=== PATIENT | male | born 1945 | race American Indian/Alaskan Native ===

== ENCOUNTER 2018-01-05 16:52 | Emergency (ER) | payer BC, MEDICARE ==
[2018-01-05 17:12] VITALS: BP 146/81
--- NOTE | 2018-01-05 20:09 | Emergency Department Report ---
HPI - General Chief Complaint: Allergic Reaction Time Seen by Provider: 01/05/18 19:55 ED Past Medical Hx - Past Medical History Previous Medical History?: No Hx Arthritis: Yes - Surgical History Past Surgical History?: Yes Additional Surgical History: hip replacement 2014 - Social History Smoking Status: Never Smoker Substance Use Type: None - Medications Home Medications: Home Medications Medication Instructions Recorded Confirmed Last Taken Type HYDROcodone/APAP 5-325 [[place] 1 each PO Q6HR PRN #30 tablet 10/23/14 Unknown Rx 5-325 mg TAB] Naproxen [Naprosyn TAB] 500 mg PO BID #60 tablet 10/23/14 Unknown Rx traMADol [Ultram 50 MG tab] 50 mg PO TID #30 tablet 10/23/14 Unknown Rx ED Review of Systems ROS: Stated complaint: ALLERGIC REACTION Other details as noted in HPI Physical Exam - Physical Exam Vital Signs: Vital Signs 01/05/18 17:03 Temperature 99.3 F Pulse Rate 83 Respiratory 20 Rate Blood Pressure 146/81 O2 Sat by Pulse 98 Oximetry ED Course Vital Signs 01/05/18 17:03 Temperature 99.3 F Pulse Rate 83 Respiratory 20 Rate Blood Pressure 146/81 O2 Sat by Pulse 98 Oximetry Critical care attestation.: If time is entered above; I have spent that time in minutes in the direct care of this critically ill patient, excluding procedure time. ED Disposition Condition: Stable Referrals: PRIMARY CARE, [Primary Care Provider] - 3-5 Days
[2018-01-05] MEDS ORDERED: DELTASONE PO ONE (20:10)
--- NOTE | 2018-01-05 20:14 | Emergency Department Report ---
ED General Adult HPI - General Chief complaint: Allergic Reaction Stated complaint: ALLERGIC REACTION Time Seen by Provider: 01/05/18 19:55 Source: patient Mode of arrival: Ambulatory Limitations: No Limitations - History of Present Illness Initial comments: 72-year-old male reports he had added dye to his meier Friday and then woke up Friday with swelling and itchiness to his face. Patient reports that he take Benadryl but still having itching. Patient reports that he was using hydrocortisone itching continued. Patient reports that he use Benadryl cream today and he said the itching was better but the swelling is still noticeable. Patient denies any allergies to any medications. He reports he takes tramadol and naproxen and [place] for chronic pain. -: days(s) (2) Location: head, face Radiation: non-radiation Quality: other (itching) Consistency: constant Improves with: medication (Benadryl cream) Associated Symptoms: denies other symptoms - Related Data Previous Rx's Medication Instructions Recorded Last Taken Type HYDROcodone/APAP 5-325 [[place] 1 each PO Q6HR PRN #30 tablet 10/23/14 Unknown Rx 5-325 mg TAB] Naproxen [Naprosyn TAB] 500 mg PO BID #60 tablet 10/23/14 Unknown Rx traMADol [Ultram 50 MG tab] 50 mg PO TID #30 tablet 10/23/14 Unknown Rx Prednisone [predniSONE 5 mg (6-Day 5 mg PO .TAPER #1 tab.ds.pk 01/05/18 Unknown Rx Pack, 21 Tabs)] Triamcinolone 0.025% [Kenalog 1 applic TP TID #1 tube 01/05/18 Unknown Rx 0.025% CREAM] Allergies Allergy/AdvReac Type Severity Reaction Status Date / Time No Known Allergies Allergy Unverified 10/20/14 19:11 ED Review of Systems ROS: Stated complaint: ALLERGIC REACTION Other details as noted in HPI Skin: rash (on head in [place] area) ED Past Medical Hx - Past Medical History Previous Medical History?: No Hx Arthritis: Yes - Surgical History Past Surgical History?: Yes Additional Surgical History: hip replacement 2014 - Social History Smoking Status: Never Smoker Substance Use Type: None - Medications Home Medications: Home Medications Medication Instructions Recorded Confirmed Last Taken Type HYDROcodone/APAP 5-325 [[place] 1 each PO Q6HR PRN #30 tablet 10/23/14 Unknown Rx 5-325 mg TAB] Naproxen [Naprosyn TAB] 500 mg PO BID #60 tablet 10/23/14 Unknown Rx traMADol [Ultram 50 MG tab] 50 mg PO TID #30 tablet 10/23/14 Unknown Rx Prednisone [predniSONE 5 mg (6-Day 5 mg PO .TAPER #1 tab.ds.pk 01/05/18 Unknown Rx Pack, 21 Tabs)] Triamcinolone 0.025% [Kenalog 1 applic TP TID #1 tube 01/05/18 Unknown Rx 0.025% CREAM] ED Physical Exam - General Limitations: No Limitations General appearance: alert, in no apparent distress - Head Head exam: Present: atraumatic, normocephalic, other (fine papular lesions non- erythematous non-edematous on the top of the head). Absent: normal inspection - ENT ENT exam: Present: mucous membranes moist - Respiratory Respiratory exam: Present: normal lung sounds bilaterally. Absent: respiratory distress - Cardiovascular Cardiovascular Exam: Present: regular rate, normal rhythm. Absent: systolic murmur, diastolic murmur, rubs, gallop - Neurological Exam Neurological exam: Present: alert, oriented X3 - Psychiatric Psychiatric exam: Present: normal affect, normal mood - Skin Skin exam: Present: warm - Expanded Skin Exam Expanded Type of lesion: Present: rash Distribution of rash: head, face Description of rash: Present: swelling (meier area). Absent: tenderness, erythematous, blisters ED Course Vital Signs 01/05/18 17:03 Temperature 99.3 F Pulse Rate 83 Respiratory 20 Rate Blood Pressure 146/81 O2 Sat by Pulse 98 Oximetry ED Medical Decision Making - Medical Decision Making Patient has been evaluated by this provider fast track. Prednisone 40 mg ordered Discussed patient I will place him on prednisone pack and triamcinolone cream 0.025 % Discussed with patient to follow up with his primary care provider. Critical care attestation.: If time is entered above; I have spent that time in minutes in the direct care of this critically ill patient, excluding procedure time. ED Disposition Clinical Impression: Allergic reaction Qualifiers: Encounter type: initial encounter Qualified Code(s): T78.40XA - Allergy, unspecified, initial encounter Disposition: TO HOME OR SELFCARE Is pt being admited?: No Does the pt Need Aspirin: No Condition: Stable Instructions: Urticaria (ED), Allergies (ED) Additional Instructions: Use medication as prescribed. If her symptoms persist or gets worse please follow-up with her primary care provider. Prescriptions: Prednisone [predniSONE 5 mg (6-Day Pack, 21 Tabs)] 5 mg PO .TAPER #1 tab.ds.pk Triamcinolone 0.025% [Kenalog 0.025% CREAM] 1 applic TP TID #1 tube Referrals: PRIMARY CARE, [Primary Care Provider] - 3-5 Days [facility] [Other] - 3-5 Days Forms: Work/School Release Form(ED), Accompanied Note
== END 2018-01-05 20:27 | disposition home or self-care (01) ==
LOC: ED 16:52
DX: T78.40XA Allergy, unspecified, initial encounter (principal); M19.90 Unspecified osteoarthritis, unspecified site; X58.XXXA Exposure to other specified factors, initial encounter
CPT/HCPCS: 99282; J7512